=== PATIENT | male | born 1935 | race Two or more races ===

== ENCOUNTER 2019-09-13 15:11 | Emergency (ER) | payer MEDICARE, SELFPAY ==
[~2019-09-13] VITALS: Ht 170.2 cm; Wt 80.0 kg
[2019-09-13 15:37] VITALS: BP 125/80
== END 2019-09-13 17:00 | disposition home or self-care (01) ==
LOC: ER 15:11
DX: Z03.818 Encounter for observation for suspected exposure to other biological agents ruled out (principal); Z00.00 Encounter for general adult medical examination without abnormal findings
CPT/HCPCS: 99283; C9803; U0003; 99281

== ENCOUNTER 2020-10-22 07:22 | Inpatient (IN) | payer MEDICARE ==
[2020-10-22] VITALS (8 sets, daily range): BP systolic 125–159; BP diastolic 63–86
[~2020-10-22] VITALS: Ht 167.6 cm; Wt 72.2 kg
[2020-10-22] MEDS ORDERED: ACETAMINOPHEN 325MG TABLET PO PRN ×2 (12:15→12:45)
[2020-10-22] MEDS ORDERED: ALLOPURINOL 100 MG TABLET PO SCH (12:15)
[2020-10-22] MEDS ORDERED: DOCUSATE SODIUM 100MG CAPSULE PO PRN (12:45)
[2020-10-22] MEDS ORDERED: HYDROCODONE/ACETAMINOPHEN 5/325MG TABLET PO PRN (12:45)
[2020-10-22] MEDS ORDERED: MAGNESIUM/ALUMINUM HYDROXIDE/SIMETHICONE 30ML UDC PO PRN (12:45)
[2020-10-22] MEDS ORDERED: GUAIFENESIN 200MG/10ML SUGAR FREE UDC PO PRN (12:45)
[2020-10-22] MEDS ORDERED: ONDANSETRON HCL 4MG/2ML INJ IV PRN (12:45)
[2020-10-22] MEDS ORDERED: ALLOPURINOL 100 MG TABLET PO NR (14:45)
[2020-10-22] MEDS ORDERED: NALOXONE HCL 0.4MG/ML VIAL IV PRN (15:45)
[2020-10-22] MEDS: METOPROLOL TARTRATE 25MG TABLET PO SCH ×2 (16:00→21:31)
[2020-10-22 16:20] LABS: CHLORIDE 106 mEq/L (98-107)
[2020-10-22 16:24] LABS: D-DIMER 0.35 mg/L FEU (<0.50); INR 1.6; PARTIAL THROMBOPLASTIN TIME 33.6 sec (23.4-31.0); PROTHROMBIN TIME 16.9 sec (9.6-11.0)
[2020-10-22 16:39] LABS: PROSTRATE SPECIFIC AG TOTAL 1.51 ng/mL (0.0-4.0)
[2020-10-22] MEDS: ATORVASTATIN CALCIUM 10MG TABLET PO SCH (20:40)
[2020-10-22 21:29] LABS: CLARITY URINE CLEAR (CLEAR); COLOR URINE YELLOW (YELLOW); KETONES URINE TRACE (NEGATIVE); LEUKOCYTE ESTERASE URINE NEGATIVE (NEGATIVE); NITRITE URINE NEGATIVE (NEGATIVE); OCCULT BLOOD URINE NEGATIVE (NEGATIVE); PH URINE 5.5 (4.5-8.0); PROTEIN URINE TRACE (NEGATIVE); SPECIFIC GRAVITY URINE 1.016 (1.005-1.030)
[2020-10-23] VITALS (13 sets, daily range): BP systolic 97–156; BP diastolic 51–91
[2020-10-23 06:48] LABS: CHLORIDE 106 mEq/L (98-107)
[2020-10-23 06:50] LABS: BASOPHILS % 0.6 % (0.0-2.0); EOSINOPHILS % 0.6 % (0.0-5.0); HEMATOCRIT. 35.4 % (42.0-52.0); HEMOGLOBIN. 11.5 g/dL (14.0-18.0); LYMPHOCYTES % 14.1 % (20.0-50.0); MEAN CORPUSCULAR HEMOGLOBIN 30.7 pg (28.0-32.0); MEAN PLATELET VOLUME 10.5 fl (7.4-10.4); NEUTROPHILS % 72.7 % (40.0-76.0); PLATELET 116 x1000/uL (130-400); RED BLOOD CELL COUNT 3.73 mill/uL (4.7-6.1); RED CELL DISTRIBUTION WIDTH 16.9 % (11.6-14.6)
[2020-10-23 07:12] LABS: INR 1.5; PROTHROMBIN TIME 15.6 sec (9.6-11.0)
[2020-10-23] MEDS: ALLOPURINOL 300 MG TABLET PO SCH (08:19)
[2020-10-23] MEDS: METOPROLOL TARTRATE 25MG TABLET PO SCH ×2 (08:19→21:21)
[2020-10-23] MEDS ORDERED: POTASSIUM CHLORIDE 20MEQ TABLET SR PO NR (12:15)
[2020-10-23] MEDS ORDERED: FUROSEMIDE 40MG/4ML VIAL IVP NR (12:15)
[2020-10-23] MEDS: SPIRONOLACTONE 25MG TABLET PO SCH (12:42)
[2020-10-23] MEDS: AMLODIPINE 2.5MG TABLET PO SCH ×2 (12:42→21:21)
[2020-10-23] MEDS: APIXABAN 2.5 MG TABLET PO SCH (16:57)
[2020-10-23] MEDS: BACITRACIN 15GM TUBE TOP SCH (16:57)
[2020-10-23] MEDS: ATORVASTATIN CALCIUM 10MG TABLET PO SCH (21:21)
[2020-10-24 00:05] VITALS: BP 137/82
[2020-10-24 02:21] VITALS: BP 138/73
[2020-10-24 04:00] VITALS: BP 146/64
[2020-10-24 06:00] VITALS: BP 153/82
[2020-10-24 06:04] LABS: BASOPHILS % 0.3 % (0.0-2.0); EOSINOPHILS % 0.8 % (0.0-5.0); HEMATOCRIT. 36.6 % (42.0-52.0); HEMOGLOBIN. 11.9 g/dL (14.0-18.0); LYMPHOCYTES % 16.5 % (20.0-50.0); MEAN CORPUSCULAR HEMOGLOBIN 31.2 pg (28.0-32.0); MEAN CORPUSCULAR VOLUME 95.8 fL (80.0-94.0); MEAN PLATELET VOLUME 10.2 fl (7.4-10.4); MONOCYTES % 10.6 % (2.0-8.0); NEUTROPHILS % 71.8 % (40.0-76.0); PLATELET 124 x1000/uL (130-400); RED BLOOD CELL COUNT 3.82 mill/uL (4.7-6.1); RED CELL DISTRIBUTION WIDTH 16.9 % (11.6-14.6)
[2020-10-24 06:08] LABS: INR 1.3; PROTHROMBIN TIME 14.1 sec (9.6-11.0)
[2020-10-24 06:22] LABS: CHLORIDE 103 mEq/L (98-107)
[2020-10-24 08:00] VITALS: BP 153/75
[2020-10-24] MEDS: SPIRONOLACTONE 25MG TABLET PO SCH (08:23)
[2020-10-24] MEDS: METOPROLOL TARTRATE 25MG TABLET PO SCH (08:23)
[2020-10-24] MEDS: AMLODIPINE 2.5MG TABLET PO SCH (08:24)
[2020-10-24] MEDS: APIXABAN 2.5 MG TABLET PO SCH (08:24)
[2020-10-24] MEDS: ALLOPURINOL 300 MG TABLET PO SCH (08:24)
[2020-10-24] MEDS: BACITRACIN 15GM TUBE TOP SCH (08:30)
== END 2020-10-24 10:15 | DRG 155 ==
LOC: 3WST 10:35
PROVIDERS: ADMIT Hospitalist; ATTEND Hospitalist
DX: S02.2XXA Fracture of nasal bones, initial encounter for closed fracture (principal); D68.59 Other primary thrombophilia; I48.19 Other persistent atrial fibrillation; M10.9 Gout, unspecified; E78.5 Hyperlipidemia, unspecified; R53.1 Weakness; J31.0 Chronic rhinitis; K43.9 Ventral hernia without obstruction or gangrene; G47.419 Narcolepsy without cataplexy; M21.332 Wrist drop, left wrist; M48.02 Spinal stenosis, cervical region; R53.81 Other malaise; R26.9 Unspecified abnormalities of gait and mobility; M13.0 Polyarthritis, unspecified; R00.1 Bradycardia, unspecified; S00.83XA Contusion of other part of head, initial encounter; I08.3 Combined rheumatic disorders of mitral, aortic and tricuspid valves; I87.2 Venous insufficiency (chronic) (peripheral); I27.20 Pulmonary hypertension, unspecified; F07.81 Postconcussional syndrome; J34.2 Deviated nasal septum; W01.0XXA Fall on same level from slipping, tripping and stumbling without subsequent striking against object, initial encounter; Z88.7 Allergy status to serum and vaccine; Y93.89 Activity, other specified; Y92.89 Other specified places as the place of occurrence of the external cause; Y99.8 Other external cause status; Z79.01 Long term (current) use of anticoagulants; Z82.3 Family history of stroke; Z82.49 Family history of ischemic heart disease and other diseases of the circulatory system
CPT/HCPCS: 36415; 71250; 76700; 80048; 81003; 82140; 82607; 83735; 84153; 84443; 84484; 85025; 85379; 92610; 93005; 93306; 93880; 93970; 97162; 97166; 97760; J1940; G0103

== ENCOUNTER 2020-10-24 10:30 | Inpatient (IN) | payer MEDICARE ==
[~2020-10-24] VITALS: Ht 167.6 cm; Wt 71.7 kg
[2020-10-24] MEDS ORDERED: NALOXONE HCL 0.4 MG/ML 1ML VIAL IV PRN (11:30)
[2020-10-24] MEDS ORDERED: ONDANSETRON 4MG ODT PO PRN (11:30)
[2020-10-24 11:41] VITALS: BP 137/65
[2020-10-24] MEDS ORDERED: MAGNESIUM/ALUMINUM HYDROXIDE/SIMETHICONE 30ML UDC PO PRN (11:45)
[2020-10-24] MEDS ORDERED: GUAIFENESIN 200MG/10ML SUGAR FREE UDC PO PRN (11:45)
[2020-10-24] MEDS ORDERED: HYDROCODONE/ACETAMINOPHEN 5/325MG TABLET PO PRN (11:45)
[2020-10-24] MEDS ORDERED: LIDOCAINE 5% PATCH TOP SCH (14:00)
[2020-10-24 14:34] VITALS: BP 137/65
[2020-10-24] MEDS: APIXABAN 2.5 MG TABLET PO SCH (17:17)
[2020-10-24] MEDS: DOCUSATE SODIUM 100MG CAPSULE PO PRN (17:17)
[2020-10-24 20:00] VITALS: BP 129/79
[2020-10-24] MEDS: ATORVASTATIN CALCIUM 10MG TABLET PO SCH (21:04)
[2020-10-24] MEDS: AMLODIPINE 2.5MG TABLET PO SCH (21:04)
[2020-10-24] MEDS: METOPROLOL TARTRATE 25MG TABLET PO SCH (21:08)
[2020-10-25 05:56] VITALS: BP_SYST 117; BP_SYST 133; BP_DIAS 63; BP_DIAS 73
[2020-10-25 07:14] LABS: BASOPHILS % 0.4 % (0.0-2.0); EOSINOPHILS % 1.9 % (0.0-5.0); HEMATOCRIT. 35.6 % (42.0-52.0); HEMOGLOBIN. 11.4 g/dL (14.0-18.0); LYMPHOCYTES % 11.5 % (20.0-50.0); MEAN CORPUSCULAR HEMOGLOBIN 30.6 pg (28.0-32.0); MEAN CORPUSCULAR VOLUME 95.1 fL (80.0-94.0); MEAN PLATELET VOLUME 9.9 fl (7.4-10.4); MONOCYTES % 11.4 % (2.0-8.0); NEUTROPHILS % 74.8 % (40.0-76.0); PLATELET 139 x1000/uL (130-400); RED BLOOD CELL COUNT 3.74 mill/uL (4.7-6.1); RED CELL DISTRIBUTION WIDTH 17.1 % (11.6-14.6)
[2020-10-25 07:31] LABS: CHLORIDE 101 mEq/L (98-107)
[2020-10-25 07:38] LABS: TOTAL IRON BINDING CAPACITY 285 ug/dL (250-450)
[2020-10-25 07:48] LABS: FOLIC ACID (FOLATE) SERUM >20 ng/mL ng/mL (>5.38)
[2020-10-25 07:58] VITALS: BP 129/62
[2020-10-25 07:59] LABS: VITAMIN B12 SERUM 607 pg/mL (211-911)
[2020-10-25] MEDS: LIDOCAINE 5% PATCH TOP SCH (08:17)
[2020-10-25] MEDS: AMLODIPINE 2.5MG TABLET PO SCH ×2 (08:18→21:02)
[2020-10-25] MEDS: SPIRONOLACTONE 25MG TABLET PO SCH (08:18)
[2020-10-25] MEDS: ALLOPURINOL 300 MG TABLET PO SCH (08:18)
[2020-10-25] MEDS: APIXABAN 2.5 MG TABLET PO SCH ×2 (08:19→16:26)
[2020-10-25] MEDS: BACITRACIN 15GM TUBE TOP SCH (08:20)
[2020-10-25] MEDS: METOPROLOL TARTRATE 25MG TABLET PO SCH ×3 (08:21→21:00)
[2020-10-25] MEDS: DOCUSATE SODIUM 100MG CAPSULE PO PRN (08:49)
[2020-10-25] MEDS ORDERED: BISACODYL 5MG TABLET PO PRN (14:30)
[2020-10-25] MEDS: DOCUSATE SODIUM 100MG CAPSULE PO SCH (16:37)
[2020-10-25 20:00] VITALS: BP_SYST 120; BP_SYST 140; BP_DIAS 61; BP_DIAS 71
[2020-10-25] MEDS: ATORVASTATIN CALCIUM 10MG TABLET PO SCH (21:02)
[2020-10-26 08:00] VITALS: BP 102/72
[2020-10-26] MEDS: METOPROLOL TARTRATE 25MG TABLET PO SCH ×2 (09:00→20:23)
[2020-10-26] MEDS: AMLODIPINE 2.5MG TABLET PO SCH (09:00)
[2020-10-26] MEDS: DOCUSATE SODIUM 100MG CAPSULE PO SCH ×2 (09:40→17:00)
[2020-10-26] MEDS: APIXABAN 2.5 MG TABLET PO SCH (09:40)
[2020-10-26] MEDS: BACITRACIN 15GM TUBE TOP SCH (09:41)
[2020-10-26] MEDS: SPIRONOLACTONE 25MG TABLET PO SCH (09:41)
[2020-10-26] MEDS: ALLOPURINOL 300 MG TABLET PO SCH (09:41)
[2020-10-26] MEDS: LIDOCAINE 5% PATCH TOP SCH (09:42)
[2020-10-26] MEDS: ACETAMINOPHEN 325MG TABLET PO PRN (09:44)
[2020-10-26] MEDS ORDERED: ATOR10TA69 PO (16:21)
[2020-10-26] MEDS ORDERED: ALLO300T2 PO (16:21)
[2020-10-26] MEDS ORDERED: WARF-53 PO (16:23)
[2020-10-26] MEDS ORDERED: FURO80TA3 PO (16:23)
[2020-10-26] MEDS ORDERED: METO-411 PO (16:23)
[2020-10-26] MEDS: ATORVASTATIN CALCIUM 10MG TABLET PO SCH (20:23)
[2020-10-26 20:30] VITALS: BP_SYST 123; BP_SYST 133; BP_DIAS 55; BP_DIAS 65
[2020-10-26 22:02] LABS: CLARITY URINE CLEAR (CLEAR); COLOR URINE YELLOW (YELLOW); KETONES URINE TRACE (NEGATIVE); LEUKOCYTE ESTERASE URINE NEGATIVE (NEGATIVE); NITRITE URINE NEGATIVE (NEGATIVE); OCCULT BLOOD URINE NEGATIVE (NEGATIVE); PROTEIN URINE TRACE (NEGATIVE); SPECIFIC GRAVITY URINE 1.023 (1.005-1.030)
[2020-10-27] MEDS: AMLODIPINE 2.5MG TABLET PO SCH ×3 (00:42→21:00)
[2020-10-27 07:36] LABS: CHLORIDE 103 mEq/L (98-107)
[2020-10-27 07:39] LABS: INR 1.2; PROTHROMBIN TIME 12.5 sec (9.6-11.0)
[2020-10-27] MEDS ORDERED: APIXABAN 2.5 MG TABLET PO SCH (08:00)
[2020-10-27 08:20] VITALS: BP 104/62
[2020-10-27] MEDS: METOPROLOL TARTRATE 25MG TABLET PO SCH ×2 (08:37→21:31)
[2020-10-27] MEDS: ALLOPURINOL 300 MG TABLET PO SCH (08:38)
[2020-10-27] MEDS: SPIRONOLACTONE 25MG TABLET PO SCH (08:39)
[2020-10-27] MEDS: LIDOCAINE 5% PATCH TOP SCH (08:40)
[2020-10-27] MEDS: BACITRACIN 15GM TUBE TOP SCH (08:45)
[2020-10-27] MEDS: DOCUSATE SODIUM 100MG CAPSULE PO SCH (08:47)
[2020-10-27 20:00] VITALS: BP 140/58
[2020-10-27] MEDS: ATORVASTATIN CALCIUM 10MG TABLET PO SCH (21:30)
[2020-10-27] MEDS: APIXABAN 5 MG TABLET PO SCH (21:30)
[2020-10-27] MEDS: IBUPROFEN 200MG TABLET PO PRN (22:31)
[2020-10-28 08:24] VITALS: BP 119/63
[2020-10-28] MEDS: ALLOPURINOL 300 MG TABLET PO SCH (10:21)
[2020-10-28] MEDS: SPIRONOLACTONE 25MG TABLET PO SCH (10:22)
[2020-10-28] MEDS: AMLODIPINE 2.5MG TABLET PO SCH ×2 (10:22→21:00)
[2020-10-28] MEDS: BACITRACIN 15GM TUBE TOP SCH (10:22)
[2020-10-28] MEDS: METOPROLOL TARTRATE 25MG TABLET PO SCH ×2 (10:22→21:00)
[2020-10-28] MEDS: APIXABAN 5 MG TABLET PO SCH ×2 (10:22→16:41)
[2020-10-28 10:33] LABS: BASOPHILS % 0.7 % (0.0-2.0); EOSINOPHILS % 3.8 % (0.0-5.0); HEMATOCRIT. 35.4 % (42.0-52.0); HEMOGLOBIN. 11.3 g/dL (14.0-18.0); LYMPHOCYTES % 15.8 % (20.0-50.0); MEAN CORPUSCULAR HEMOGLOBIN 30.4 pg (28.0-32.0); MEAN CORPUSCULAR VOLUME 94.7 fL (80.0-94.0); MEAN PLATELET VOLUME 9.4 fl (7.4-10.4); MONOCYTES % 11.4 % (2.0-8.0); NEUTROPHILS % 68.3 % (40.0-76.0); PLATELET 201 x1000/uL (130-400); RED BLOOD CELL COUNT 3.74 mill/uL (4.7-6.1); RED CELL DISTRIBUTION WIDTH 16.7 % (11.6-14.6)
[2020-10-28 10:53] LABS: CHLORIDE 102 mEq/L (98-107)
[2020-10-28] MEDS: DOCUSATE SODIUM 100MG CAPSULE PO SCH ×2 (12:32→16:41)
[2020-10-28 20:00] VITALS: BP_SYST 110; BP_SYST 122; BP_DIAS 62
[2020-10-28] MEDS: ATORVASTATIN CALCIUM 10MG TABLET PO SCH (21:39)
[2020-10-29] MEDS: IBUPROFEN 200MG TABLET PO PRN ×2 (01:55→18:05)
[2020-10-29 08:00] VITALS: BP 145/63
[2020-10-29] MEDS: SPIRONOLACTONE 25MG TABLET PO SCH (08:37)
[2020-10-29] MEDS: APIXABAN 5 MG TABLET PO SCH ×2 (08:37→17:04)
[2020-10-29] MEDS: DOCUSATE SODIUM 100MG CAPSULE PO SCH ×2 (08:37→17:04)
[2020-10-29] MEDS: ALLOPURINOL 300 MG TABLET PO SCH (08:37)
[2020-10-29] MEDS: AMLODIPINE 2.5MG TABLET PO SCH ×2 (08:38→22:25)
[2020-10-29] MEDS: METOPROLOL TARTRATE 25MG TABLET PO SCH ×2 (08:38→22:24)
[2020-10-29] MEDS: BACITRACIN 15GM TUBE TOP SCH (08:41)
[2020-10-29 20:00] VITALS: BP 126/62
[2020-10-29] MEDS: ATORVASTATIN CALCIUM 10MG TABLET PO SCH (22:25)
[2020-10-30 08:00] VITALS: BP 130/65
[2020-10-30] MEDS: APIXABAN 5 MG TABLET PO SCH ×2 (08:28→17:03)
[2020-10-30] MEDS: AMLODIPINE 2.5MG TABLET PO SCH ×2 (08:29→21:57)
[2020-10-30] MEDS: DOCUSATE SODIUM 100MG CAPSULE PO SCH ×2 (08:29→17:03)
[2020-10-30] MEDS: METOPROLOL TARTRATE 25MG TABLET PO SCH ×2 (08:29→21:57)
[2020-10-30] MEDS: ALLOPURINOL 300 MG TABLET PO SCH (08:29)
[2020-10-30] MEDS: SPIRONOLACTONE 25MG TABLET PO SCH (08:29)
[2020-10-30] MEDS: BACITRACIN 15GM TUBE TOP SCH (08:30)
[2020-10-30 09:19] LABS: EOSINOPHILS % 3.5 % (0.0-5.0); HEMATOCRIT. 33.9 % (42.0-52.0); HEMOGLOBIN. 11.2 g/dL (14.0-18.0); LYMPHOCYTES % 19.4 % (20.0-50.0); MEAN CORPUSCULAR HEMOGLOBIN 30.8 pg (28.0-32.0); MEAN CORPUSCULAR VOLUME 93.3 fL (80.0-94.0); MEAN PLATELET VOLUME 9.1 fl (7.4-10.4); MONOCYTES % 13.4 % (2.0-8.0); NEUTROPHILS % 62.7 % (40.0-76.0); PLATELET 203 x1000/uL (130-400); RED BLOOD CELL COUNT 3.63 mill/uL (4.7-6.1); RED CELL DISTRIBUTION WIDTH 16.6 % (11.6-14.6)
[2020-10-30 09:23] LABS: CHLORIDE 106 mEq/L (98-107)
[2020-10-30 14:08] LABS: 25-HYDROXY VITAMIN D3 16 ng/mL (.)
[2020-10-30] MEDS: LIDOCAINE 5% PATCH TOP SCH (14:31)
[2020-10-30] MEDS: ERGOCALCIFEROL 50000UNITS CAPSULE PO SCH (17:03)
[2020-10-30] MEDS ORDERED: NA PHOS,M-B/NA PHOS,DI-BA ENEMA 118ML PR NR (19:00)
[2020-10-30 20:00] VITALS: BP 139/69
[2020-10-30] MEDS: ATORVASTATIN CALCIUM 10MG TABLET PO SCH (21:57)
[2020-10-31 08:00] VITALS: BP 132/55
[2020-10-31] MEDS: DOCUSATE SODIUM 100MG CAPSULE PO SCH ×2 (09:00→17:00)
[2020-10-31] MEDS: METOPROLOL TARTRATE 25MG TABLET PO SCH ×2 (09:00→21:24)
[2020-10-31] MEDS: LIDOCAINE 5% PATCH TOP SCH (09:00)
[2020-10-31] MEDS: BACITRACIN 15GM TUBE TOP SCH (09:24)
[2020-10-31] MEDS: APIXABAN 5 MG TABLET PO SCH ×2 (09:28→18:39)
[2020-10-31] MEDS: ALLOPURINOL 300 MG TABLET PO SCH (09:28)
[2020-10-31] MEDS: AMLODIPINE 2.5MG TABLET PO SCH ×2 (09:28→21:00)
[2020-10-31 20:00] VITALS: BP 102/51
[2020-10-31] MEDS: ATORVASTATIN CALCIUM 10MG TABLET PO SCH (21:24)
[2020-10-31] MEDS: IBUPROFEN 200MG TABLET PO PRN (22:56)
[2020-10-31] MEDS ORDERED: IBUPROFEN 200MG TABLET PO PRN ×2 (23:15→23:30)
[2020-10-31] MEDS ORDERED: NAPROXEN 250MG TABLET PO PRN (23:15)
[2020-10-31] MEDS ORDERED: IBUPROFEN 200MG TABLET PO NR (23:15)
[2020-11-01 06:14] LABS: BASOPHILS % 0.9 % (0.0-2.0); EOSINOPHILS % 2.5 % (0.0-5.0); HEMATOCRIT. 34.4 % (42.0-52.0); HEMOGLOBIN. 10.7 g/dL (14.0-18.0); LYMPHOCYTES % 20.8 % (20.0-50.0); MEAN CORPUSCULAR HEMOGLOBIN 30.5 pg (28.0-32.0); MEAN CORPUSCULAR VOLUME 97.8 fL (80.0-94.0); MEAN PLATELET VOLUME 8.6 fl (7.4-10.4); MONOCYTES % 13.9 % (2.0-8.0); NEUTROPHILS % 61.9 % (40.0-76.0); PLATELET 197 x1000/uL (130-400); RED BLOOD CELL COUNT 3.52 mill/uL (4.7-6.1); RED CELL DISTRIBUTION WIDTH 17.5 % (11.6-14.6)
[2020-11-01 06:52] LABS: CHLORIDE 102 mEq/L (98-107)
[2020-11-01 07:15] VITALS: BP 125/59
[2020-11-01] MEDS: DOCUSATE SODIUM 100MG CAPSULE PO SCH ×2 (08:27→16:41)
[2020-11-01] MEDS: METOPROLOL TARTRATE 25MG TABLET PO SCH ×2 (08:28→21:00)
[2020-11-01] MEDS: AMLODIPINE 2.5MG TABLET PO SCH ×2 (08:28→21:37)
[2020-11-01] MEDS: APIXABAN 5 MG TABLET PO SCH ×2 (08:28→16:41)
[2020-11-01] MEDS: LIDOCAINE 5% PATCH TOP SCH (08:29)
[2020-11-01] MEDS: BACITRACIN 15GM TUBE TOP SCH (08:29)
[2020-11-01] MEDS: ALLOPURINOL 300 MG TABLET PO SCH (08:29)
[2020-11-01 20:00] VITALS: BP 127/56
[2020-11-01] MEDS: ATORVASTATIN CALCIUM 10MG TABLET PO SCH (21:37)
[2020-11-02 08:00] VITALS: BP 134/62
[2020-11-02] MEDS: ALLOPURINOL 300 MG TABLET PO SCH (08:35)
[2020-11-02] MEDS: DOCUSATE SODIUM 100MG CAPSULE PO SCH ×2 (08:36→16:19)
[2020-11-02] MEDS: METOPROLOL TARTRATE 25MG TABLET PO SCH ×2 (08:36→21:00)
[2020-11-02] MEDS: AMLODIPINE 2.5MG TABLET PO SCH ×2 (08:36→20:42)
[2020-11-02] MEDS: APIXABAN 5 MG TABLET PO SCH ×2 (08:36→16:19)
[2020-11-02] MEDS: BACITRACIN 15GM TUBE TOP SCH (08:37)
[2020-11-02] MEDS: LIDOCAINE 5% PATCH TOP SCH (08:37)
[2020-11-02 20:00] VITALS: BP 122/80
[2020-11-02] MEDS: ATORVASTATIN CALCIUM 10MG TABLET PO SCH (20:42)
[2020-11-02] MEDS: ACETAMINOPHEN 325MG TABLET PO PRN (20:42)
[2020-11-03 07:21] LABS: CHLORIDE 102 mEq/L (98-107)
[2020-11-03 07:40] LABS: BASOPHILS % 0.6 % (0.0-2.0); EOSINOPHILS % 2.2 % (0.0-5.0); HEMATOCRIT. 34.1 % (42.0-52.0); LYMPHOCYTES % 21.1 % (20.0-50.0); MEAN CORPUSCULAR HEMOGLOBIN 30.2 pg (28.0-32.0); MEAN CORPUSCULAR VOLUME 93.9 fL (80.0-94.0); MEAN PLATELET VOLUME 8.5 fl (7.4-10.4); MONOCYTES % 12.4 % (2.0-8.0); NEUTROPHILS % 63.7 % (40.0-76.0); PLATELET 210 x1000/uL (130-400); RED BLOOD CELL COUNT 3.63 mill/uL (4.7-6.1); RED CELL DISTRIBUTION WIDTH 16.9 % (11.6-14.6)
[2020-11-03 07:53] VITALS: BP 134/72
[2020-11-03] MEDS: LIDOCAINE 5% PATCH TOP SCH (09:00)
[2020-11-03] MEDS: AMLODIPINE 2.5MG TABLET PO SCH ×2 (09:04→19:57)
[2020-11-03] MEDS: APIXABAN 5 MG TABLET PO SCH ×2 (09:04→17:29)
[2020-11-03] MEDS: ALLOPURINOL 300 MG TABLET PO SCH (09:04)
[2020-11-03] MEDS: DOCUSATE SODIUM 100MG CAPSULE PO SCH ×2 (09:04→17:29)
[2020-11-03] MEDS: METOPROLOL TARTRATE 25MG TABLET PO SCH ×2 (09:05→21:00)
[2020-11-03] MEDS: BACITRACIN 15GM TUBE TOP SCH (09:05)
[2020-11-03] MEDS ORDERED: IBUPROFEN 200MG TABLET PO PRN (11:00)
[2020-11-03] MEDS: ACETAMINOPHEN 325MG TABLET PO PRN ×2 (11:05→19:57)
[2020-11-03] MEDS ORDERED: IBUPROFEN 400MG TABLET PO PRN (11:30)
[2020-11-03] MEDS: SPIRONOLACTONE 25MG TABLET PO SCH (17:30)
[2020-11-03] MEDS: ATORVASTATIN CALCIUM 10MG TABLET PO SCH (19:56)
[2020-11-03 20:00] VITALS: BP 141/67
[2020-11-04 08:26] VITALS: BP 125/62
[2020-11-04] MEDS: AMLODIPINE 2.5MG TABLET PO SCH ×3 (08:29→21:26)
[2020-11-04] MEDS: BACITRACIN 15GM TUBE TOP SCH (08:31)
[2020-11-04] MEDS: ALLOPURINOL 300 MG TABLET PO SCH (08:31)
[2020-11-04] MEDS: DOCUSATE SODIUM 100MG CAPSULE PO SCH ×2 (08:31→17:19)
[2020-11-04] MEDS: SPIRONOLACTONE 25MG TABLET PO SCH ×2 (08:31→17:00)
[2020-11-04] MEDS: APIXABAN 5 MG TABLET PO SCH ×2 (08:31→17:19)
[2020-11-04] MEDS: LIDOCAINE 5% PATCH TOP SCH (08:32)
[2020-11-04] MEDS: METOPROLOL TARTRATE 25MG TABLET PO SCH ×2 (08:32→21:30)
[2020-11-04 09:58] VITALS: BP 139/77
[2020-11-04 11:45] VITALS: BP 145/63
[2020-11-04 18:09] VITALS: BP 120/82
[2020-11-04] MEDS: ACETAMINOPHEN 325MG TABLET PO PRN (19:11)
[2020-11-04 20:00] VITALS: BP 140/65
[2020-11-04] MEDS ORDERED: NAPROXEN 250MG TABLET PO PRN (20:00)
[2020-11-04] MEDS: ATORVASTATIN CALCIUM 10MG TABLET PO SCH (21:26)
[2020-11-05 07:05] LABS: BASOPHILS % 0.7 % (0.0-2.0); HEMATOCRIT. 33.7 % (42.0-52.0); HEMOGLOBIN. 11.1 g/dL (14.0-18.0); LYMPHOCYTES % 23.4 % (20.0-50.0); MEAN CORPUSCULAR HEMOGLOBIN 30.7 pg (28.0-32.0); MEAN CORPUSCULAR VOLUME 93.2 fL (80.0-94.0); MEAN PLATELET VOLUME 8.4 fl (7.4-10.4); MONOCYTES % 13.4 % (2.0-8.0); NEUTROPHILS % 60.5 % (40.0-76.0); PLATELET 225 x1000/uL (130-400); RED BLOOD CELL COUNT 3.62 mill/uL (4.7-6.1); RED CELL DISTRIBUTION WIDTH 16.8 % (11.6-14.6)
[2020-11-05 07:08] LABS: CHLORIDE 102 mEq/L (98-107)
[2020-11-05 08:09] VITALS: BP 120/88
[2020-11-05] MEDS: ALLOPURINOL 300 MG TABLET PO SCH (08:58)
[2020-11-05] MEDS: APIXABAN 5 MG TABLET PO SCH ×2 (08:58→17:07)
[2020-11-05] MEDS: DOCUSATE SODIUM 100MG CAPSULE PO SCH ×2 (08:58→17:07)
[2020-11-05] MEDS: METOPROLOL TARTRATE 25MG TABLET PO SCH ×2 (08:59→20:01)
[2020-11-05] MEDS: LIDOCAINE 5% PATCH TOP SCH (09:00)
[2020-11-05] MEDS: SPIRONOLACTONE 25MG TABLET PO SCH ×2 (09:00→17:00)
[2020-11-05] MEDS: AMLODIPINE 2.5MG TABLET PO SCH ×2 (09:04→20:02)
[2020-11-05] MEDS: BACITRACIN 15GM TUBE TOP SCH (09:08)
[2020-11-05] MEDS ORDERED: AMLO2.5T2 MT ×2 (12:31)
[2020-11-05] MEDS ORDERED: APIX5TAB PO (12:33)
[2020-11-05] MEDS ORDERED: METO25TA3 MT (12:36)
[2020-11-05] MEDS ORDERED: SPIR25TA PO (12:38)
[2020-11-05 18:18] LABS: CLARITY URINE CLEAR (CLEAR); COLOR URINE YELLOW (YELLOW); KETONES URINE NEGATIVE (NEGATIVE); LEUKOCYTE ESTERASE URINE NEGATIVE (NEGATIVE); NITRITE URINE NEGATIVE (NEGATIVE); OCCULT BLOOD URINE NEGATIVE (NEGATIVE); PROTEIN URINE NEGATIVE (NEGATIVE); SPECIFIC GRAVITY URINE 1.021 (1.005-1.030)
[2020-11-05 20:00] VITALS: BP 116/47
[2020-11-05] MEDS: ATORVASTATIN CALCIUM 10MG TABLET PO SCH (20:01)
[2020-11-05] MEDS: ACETAMINOPHEN 325MG TABLET PO PRN (20:03)
[2020-11-06 08:00] VITALS: BP 119/53
[2020-11-06] MEDS: AMLODIPINE 2.5MG TABLET PO SCH (09:00)
[2020-11-06] MEDS: SPIRONOLACTONE 25MG TABLET PO SCH (09:00)
[2020-11-06] MEDS: APIXABAN 5 MG TABLET PO SCH (09:43)
[2020-11-06] MEDS: BACITRACIN 15GM TUBE TOP SCH (09:43)
[2020-11-06] MEDS: DOCUSATE SODIUM 100MG CAPSULE PO SCH (09:43)
[2020-11-06] MEDS: ERGOCALCIFEROL 50000UNITS CAPSULE PO SCH (09:43)
[2020-11-06] MEDS: ALLOPURINOL 300 MG TABLET PO SCH (09:43)
[2020-11-06 09:44] VITALS: BP 119/53
[2020-11-06] MEDS: LIDOCAINE 5% PATCH TOP SCH (09:44)
[2020-11-06] MEDS: METOPROLOL TARTRATE 25MG TABLET PO SCH (09:44)
== END 2020-11-06 15:15 | disposition home or self-care (01) | DRG 914 ==
PROVIDERS: ADMIT Physical Medicine & Rehabilitation Spinal Cord Injury Medicine; ATTEND Hospitalist
DX: S09.90XA Unspecified injury of head, initial encounter (principal); M48.54XA Collapsed vertebra, not elsewhere classified, thoracic region, initial encounter for fracture; I48.19 Other persistent atrial fibrillation; E44.1 Mild protein-calorie malnutrition; D68.59 Other primary thrombophilia; W01.0XXA Fall on same level from slipping, tripping and stumbling without subsequent striking against object, initial encounter; S14.109A Unspecified injury at unspecified level of cervical spinal cord, initial encounter; S02.2XXA Fracture of nasal bones, initial encounter for closed fracture; M48.02 Spinal stenosis, cervical region; I27.21 Secondary pulmonary arterial hypertension; I25.10 Atherosclerotic heart disease of native coronary artery without angina pectoris; I10 Essential (primary) hypertension; I08.3 Combined rheumatic disorders of mitral, aortic and tricuspid valves; G90.9 Disorder of the autonomic nervous system, unspecified; M10.9 Gout, unspecified; M13.0 Polyarthritis, unspecified; K43.9 Ventral hernia without obstruction or gangrene; D69.6 Thrombocytopenia, unspecified; D64.9 Anemia, unspecified; E78.00 Pure hypercholesterolemia, unspecified; E78.5 Hyperlipidemia, unspecified; Z20.822 Contact with and (suspected) exposure to COVID-19; E55.9 Vitamin D deficiency, unspecified; R53.81 Other malaise; E87.5 Hyperkalemia; F07.81 Postconcussional syndrome; F32.9 Major depressive disorder, single episode, unspecified; G83.9 Paralytic syndrome, unspecified; I49.3 Ventricular premature depolarization; M21.332 Wrist drop, left wrist; S00.83XA Contusion of other part of head, initial encounter; I87.2 Venous insufficiency (chronic) (peripheral); Z79.01 Long term (current) use of anticoagulants; Z79.899 Other long term (current) drug therapy; Z86.73 Personal history of transient ischemic attack (TIA), and cerebral infarction without residual deficits; Z91.81 History of falling; Z68.25 Body mass index [BMI] 25.0-25.9, adult; Z88.7 Allergy status to serum and vaccine
CPT/HCPCS: 36415; 70551; 71046; 72141; 72146; 73221; 80048; 80053; 81003; 82140; 82306; 82607; 82746; 82962; 83540; 83550; 83735; 83880; 84443; 85025; 87426; 92523; 93005; 95816; 97110; 97112; 97116; 97162; 97166; 97530; 97535; L0172

== ENCOUNTER 2021-06-08 16:25 | Inpatient (IN) | payer MEDICARE ==
[~2021-06-08] VITALS: Ht 170.2 cm; Wt 63.5 kg
[~2021-06-08 16:25] MED LIST: ALLO300T2 PO; AMLO2.5T2 MT; APIX5TAB PO; ATOR10TA69 PO; METO25TA3 MT; SPIR25TA PO
[2021-06-08] MEDS ORDERED: NAPROXEN 375MG TABLET PO PRN (18:15)
[2021-06-08 18:50] LABS: BASOPHILS % 0.5 % (0.0-2.0); EOSINOPHILS % 2.2 % (0.0-5.0); HEMATOCRIT. 33.6 % (42.0-52.0); HEMOGLOBIN. 10.9 g/dL (14.0-18.0); LYMPHOCYTES % 17.2 % (20.0-50.0); MEAN CORPUSCULAR HEMOGLOBIN 31.2 pg (28.0-32.0); MEAN PLATELET VOLUME 9.2 fl (7.4-10.4); MONOCYTES % 14.7 % (2.0-8.0); NEUTROPHILS % 65.4 % (40.0-76.0); PLATELET 195 x1000/uL (130-400); RED CELL DISTRIBUTION WIDTH 16.6 % (11.6-14.6)
[2021-06-08 18:56] LABS: CHLORIDE 100 mEq/L (98-107)
[2021-06-08] MEDS ORDERED: FURO80TA87 MT (19:52)
[2021-06-08] MEDS ORDERED: NAPR375T5 MT (19:52)
[2021-06-08] MEDS ORDERED: ZOLP5TAB2 MT (19:52)
[2021-06-08 20:00] VITALS: BP 131/67
[2021-06-08 20:10] LABS: INR 1.1; PARTIAL THROMBOPLASTIN TIME 33.6 sec (23.4-31.0)
[2021-06-08] MEDS ORDERED: ZOSYN PER PHARMACY XX SCH (20:30)
[2021-06-08] MEDS ORDERED: ZOLPIDEM TARTRATE 5MG TABLET PO PRN (20:45)
[2021-06-08 21:00] VITALS: BP 131/67
[2021-06-08] MEDS ORDERED: ATORVASTATIN CALCIUM 40MG TABLET PO SCH (21:00)
[2021-06-08] MEDS ORDERED: METOPROLOL TARTRATE 25MG TABLET PO SCH (21:00)
[2021-06-08] MEDS: ALLOPURINOL 300 MG TABLET PO SCH (22:33)
[2021-06-08] MEDS: PIPERACILLIN/TAZOBACTAM 3.375G in DEXT 5% WATER 50ML IV SCH (22:34)
[2021-06-08] MEDS: ATORVASTATIN CALCIUM 10MG TABLET PO SCH (22:47)
[2021-06-09] VITALS: BP 124/64
[2021-06-09] MEDS ORDERED: HYDROCODONE/ACETAMINOPHEN 5/325MG TABLET PO PRN (00:45)
[2021-06-09] MEDS ORDERED: ACETAMINOPHEN 325MG TABLET PO PRN (00:45)
[2021-06-09 04:00] VITALS: BP 119/57
[2021-06-09] MEDS: PIPERACILLIN/TAZOBACTAM 3.375G in DEXT 5% WATER 50ML IV SCH ×3 (05:31→21:07)
[2021-06-09] MEDS: SODIUM CHLORIDE 0.45% 1,000 ML IV SCH ×2 (05:32→18:25)
[2021-06-09 08:00] VITALS: BP 149/65
[2021-06-09] MEDS: METOPROLOL SUCCINATE 50MG ER TABLET PO SCH (09:00)
[2021-06-09 09:12] LABS: HEMATOCRIT 30.7 % (42.0-52.0); HEMOGLOBIN 10.1 g/dL (14.0-18.0); MEAN CORPUSCULAR HEMOGLOBIN 31.1 pg (28.0-32.0); MEAN CORPUSCULAR VOLUME 94.5 fL (80.0-94.0); PLATELET 185 x1000/uL (130-400); RED BLOOD CELL COUNT 3.24 mill/uL (4.7-6.1); RED CELL DISTRIBUTION WIDTH 16.9 % (11.6-14.6)
[2021-06-09 09:25] LABS: INR 1.1; PARTIAL THROMBOPLASTIN TIME 31.7 sec (23.4-31.0); PROTHROMBIN TIME 12.1 sec (9.6-11.0)
[2021-06-09 09:41] LABS: CHLORIDE 102 mEq/L (98-107)
[2021-06-09] MEDS ORDERED: POLYMYXIN B SULFATE 500000 UNITS/VIAL ONE (10:11)
[2021-06-09] MEDS ORDERED: BUPIVACAINE HCL/PF 0.5% (5MG/ML) 30ML ONE (10:11)
[2021-06-09] MEDS ORDERED: LIDOCAINE HCL 1% 10 MG/ML 10ML VIAL ONE ×3 (10:12→10:53)
[2021-06-09] MEDS ORDERED: BACITRACIN 15GM TUBE TOP ONE (10:13)
[2021-06-09] MEDS ORDERED: FENTANYL CITRATE/PF 50MCG/ML 2ML VIAL ONE (10:40)
[2021-06-09] MEDS ORDERED: PROPOFOL 200MG/20ML VIAL IV ONE (10:40)
[2021-06-09] MEDS ORDERED: DEXAMETHASONE 4MG/ML 1ML VIAL ONE (10:53)
[2021-06-09] MEDS ORDERED: ONDANSETRON HCL 4MG/2ML INJ ONE (10:53)
[2021-06-09] MEDS ORDERED: CEFAZOLIN SODIUM 1000MG/VIAL ONE (10:53)
[2021-06-09] MEDS ORDERED: FENTANYL CITRATE/PF 50MCG/ML 2ML VIAL IV PRN (11:45)
[2021-06-09 16:00] VITALS: BP 117/52
[2021-06-09 20:00] VITALS: BP 128/62
[2021-06-09] MEDS: ATORVASTATIN CALCIUM 10MG TABLET PO SCH (21:07)
[2021-06-09] MEDS: ALLOPURINOL 300 MG TABLET PO SCH (21:07)
[2021-06-10] VITALS: BP 131/76
[2021-06-10 04:00] VITALS: BP 120/64
[2021-06-10] MEDS: PIPERACILLIN/TAZOBACTAM 3.375G in DEXT 5% WATER 50ML IV SCH (05:11)
[2021-06-10 08:00] VITALS: BP 109/57
[2021-06-10] MEDS: SODIUM CHLORIDE 0.45% 1,000 ML IV SCH (08:04)
[2021-06-10] MEDS: METOPROLOL SUCCINATE 50MG ER TABLET PO SCH ×2 (08:33→09:37)
[2021-06-10 11:14] VITALS: BP 108/68
[2021-06-10] MEDS ORDERED: NAPROXEN 250MG TABLET PO NR ×2 (11:55→12:13)
[2021-06-10] MEDS ORDERED: NAPROXEN 250MG TABLET PO PRN (12:00)
== END 2021-06-10 12:59 | disposition home health service (06) | DRG 571 ==
LOC: 6EST 16:25
PROVIDERS: ADMIT Specialist; ATTEND Specialist
PROC: 0JBR0ZZ Excision of Left Foot Subcutaneous Tissue and Fascia, Open Approach (ICD-10-PCS; principal; 2021-06-09)
DX: L03.116 Cellulitis of left lower limb (principal); I48.19 Other persistent atrial fibrillation; E11.9 Type 2 diabetes mellitus without complications; E78.5 Hyperlipidemia, unspecified; F51.04 Psychophysiologic insomnia; I27.21 Secondary pulmonary arterial hypertension; I25.10 Atherosclerotic heart disease of native coronary artery without angina pectoris; S90.32XA Contusion of left foot, initial encounter; I08.0 Rheumatic disorders of both mitral and aortic valves; X58.XXXA Exposure to other specified factors, initial encounter; Z20.822 Contact with and (suspected) exposure to COVID-19; I10 Essential (primary) hypertension; Z86.73 Personal history of transient ischemic attack (TIA), and cerebral infarction without residual deficits; Z79.01 Long term (current) use of anticoagulants; Z79.899 Other long term (current) drug therapy; Z82.49 Family history of ischemic heart disease and other diseases of the circulatory system; Z88.7 Allergy status to serum and vaccine; Y93.89 Activity, other specified; Y92.89 Other specified places as the place of occurrence of the external cause; Y99.8 Other external cause status; R26.9 Unspecified abnormalities of gait and mobility
CPT/HCPCS: 36415; 73610; 73630; 73721; 80048; 80053; 85025; 85027; 87426; 88304; 93005; 93971; 97162; J0690; J1100; J2405; J2543; J2704; J3010; J3490; J7060